=== PATIENT | female | born 1990 ===

== ENCOUNTER 2017-11-27 15:50 | Inpatient (IN) ==
--- NOTE | 2017-11-27 18:19 | PN ---
Progess Note - Interim Date: 11/27/17 Time: 17:47 Narrative: 11/27/17 17:47 27 yo at 37 2/7 wks with janette breech presentation presents for attempt at external cephalic version. U/s shows fetus in janette breech with back to maternal right at a 45' angle. NST reactive. VItal signs stable. R/b/a discussed with patient again and informed consent obtained. 3 attempts at counterclockwise rotation and 1 attempt at clockwise rotation. FHT monitored throughout procedure - mother and baby tolerated well. Patient desires vaginal breech delivery and is a good candidate. Her cervix was 3/50/-2 with buttocks well applied to cervix. Contractions q 2-3 min after stripping membranes. tracing reassuring for over the past 1.5 hours. Will reassess in 1-2 hours for labor. If not in labor, will d/c home to return when contraction increase intensity otherwise admit for labor.
[2017-11-27] MEDS ORDERED: RINGER'S SOLUTION,LACTATED 1,000 ML IV ONE ×2 (19:14→23:08)
[2017-11-27] MEDS ORDERED: DEXTROSE 5%-LACTATED RINGERS 1,000 ML IV PRN (23:08)
[2017-11-27] MEDS ORDERED: OXYTOCIN/DEXTROSE 5%-WATER 30 UNITS/500 ML BAG IV ONE (23:08)
[2017-11-27] MEDS ORDERED: NALOXONE HCL 1 MG/1 ML SYRG IV PRN (23:08)
[2017-11-27] MEDS ORDERED: ONDANSETRON HCL/PF 2 MG/ML VIAL IV PRN (23:08)
[2017-11-27] MEDS ORDERED: fentaNYL CITRATE/PF 50 MCG/ML AMPUL IT SCH (23:15)
[2017-11-27] MEDS ORDERED: BUPIVACAINE HCL/0.9 % NACL/PF 250 ML EP PRN (23:16)
--- NOTE | 2017-11-28 00:09 | ANES ---
Anesthesia Pre Procedure Eval HOME MEDICATIONS Ascorbate Calcium [Vitamin C] 500 mg PO DAILY 11/19/17 [Last Taken 11/26/17] Ferrous Sulfate [Iron] 325 mg PO DAILY 11/19/17 [Last Taken 11/26/17] Vits96/Iron Fum/Folic [ S] 1 tab PO DAILY 11/19/17 [Last Taken 11/26/17] Allergies/Adverse Reactions: Allergies Allergy/AdvReac Type Severity Reaction Status Date / Time No Known Allergies Allergy Verified 11/27/17 16:25 - Planned Procedure Planned Procedure: LABOR Medication List Reviewed:: Yes Allergies Verified: Yes Medical History (Last Reviewed 11/28/17 @ 00:05 by Luke Meredith CRNA) Anemia Onset Date: ~2017 Arrhythmia Bipolar disorder Onset Date: ~2007 Depression Onset Date: ~2007 Migraine Onset Date: Unknown Scoliosis Onset Date: Unknown Chlamydia Onset Date: ~04/04/13 Clavicle fracture Onset Date: Unknown Galactorrhea not associated with childbirth Onset Date: Unknown Ganglion cyst of dorsum of right wrist Onset Date: ~04/2015 Hip pain Onset Date: Unknown Rash Onset Date: ~2003 Wrist pain Onset Date: Unknown Surgical History (Last Reviewed 11/28/17 @ 00:06 by Luke Meredith CRNA) H/O breast augmentation Onset Date: ~08/22/15 H/O arthroscopic knee surgery Onset Date: ~2008 H/O excision of ganglion cyst Onset Date: ~05/09/15 H/O removal of cyst Onset Date: ~12/12/16 History of tonsillectomy Onset Date: ~2008 Hx of tympanostomy tubes Onset Date: ~1994 [place] teeth extracted Onset Date: ~2008 Family History (Last Reviewed 11/28/17 @ 00:06 by Luke Meredith CRNA) Father Cancer Grandfather Heart disease Hypertension Collapsed lung Grandmother Asthma H/O brain surgery - Family Anesthesia History Family History:: no untoward family reactions to anesthesia, no familial bleeding tendencies, no family history of clotting disorders, no family history of premature - Airway/Neck/Teeth Within Normal Limits:: Yes Teeth Condition: Intact Mallampatti Score: 2 Thyromental (T-M) distance: > 6 cm Mandibulo Hyoid distance: > 3 cm - Respiratory Respiratory: chest non-tender, lungs clear Smoking Status: Former smoker Sleep Apnea currently treated: No Sleep Apnea by current assessment: No - Cardiovascular Patient History - Cardiac/Respiratory: Arrhythmias Tolerates Activity: Fair Heart Sounds: S1 & S2, Regular - Anesthesia Assessment and Plan ASA Class: PS, II, E Anesthesia Type Plan: Epidural Planned difficult intubation/equipment available: No - breach presentation, in labor.
--- NOTE | 2017-11-28 00:32 | ANES ---
Anesthesia Procedure Note Procedure Note: ANESTHESIA PROCEDURE NOTE Date of Procedure: 11/27/2017 Time of procedure: 2300. Performed by: NINA Beauchamp CRNA, MSN Director Electronics: Dee Kimball RN. Preprocedure diagnosis: Active labor, labor pain. Post procedure diagnosis: Same. Procedure:Epidural for labor analgesia. L3,4. Indications: Labor pain. Although she is a breech presentation, she was wishing to attempt a vaginal delivery Findings: See below. Details of the procedure: The patient was placed on the side of the bed in sitting positionand prepped with DuraPrep then draped in a sterile fashion. Lidocaine 1% was infiltrated to the skin and subcutaneous tissues at the level of the L3 4 interspace. An 18-gauge Touhy needle was used to approach the epidural space with loss of resistance technique. Once loss of resistance was achieved a 27-gauge spinal needle was passed through the epidural needle and CSF was contacted. After CSF returned, 20 mcg of fentanyl was injected in the spinal needle was removed the epidural catheter was then threaded approximately 4 cm in the epidural needle was removed. The catheter was taped in place and after careful aspiration 3 mL of 1.5% lidocaine with 1-200,000 epinephrine was injected without change in maternal heart rate or sensorium. . EBL: Minimal. Fluids: N/A. Specimen: N/A. Post procedure condition: The patient tolerated the procedure well with [] relief. No complications were noted. Thank you for this consultation. Luke Meredith CRNA, NINA, MSN
--- NOTE | 2017-11-28 00:53 | ANES ---
Post Anesthesia Discharge - Transfer of Care Transfer of Care handoff given to nurse: Yes - Discharge from PACU Discharge from PACU when meets criteria: Yes - Anesthesia Post Op Note Anesthesia Post Op Note: Comfortable following epidural placement
--- NOTE | 2017-11-28 00:55 | ANES ---
Post Anesthesia Assessment - Vital Signs Vitals: BP 136/75, HR 71, RR 18, T 37.3C, SaO2 99 Airway Patency: Normal - Mental Status Level Of Consciousness: Awake, Alert - Pain Level Pain Score: 0 - N/V Assessment Nausea/Vomiting Presence: None Dehydration:: No
[2017-11-28] MEDS ORDERED: ceFAZolin SODIUM/DEXTROSE,ISO 2 GM/50 ML BAG IV ONE (05:43)
[2017-11-28] MEDS ORDERED: OXYTOCIN 20 UNITS in RINGER'S SOLUTION,LACTATED 1,000 ML IV ONE (05:43)
--- NOTE | 2017-11-28 05:50 | PN ---
Progess Note - Interim Date: 11/28/17 Time: 05:45 Narrative: 11/28/17 05:45 Patient comfortable with epidural Vital signs stable. FHT:150 baseline, reassuring Contractions q 2-3 min Cervix: 8/80/-1, no change in 2-1/2 hours Impression: Intrauterine at 37 3/7 weeks in labor, attempting vaginal breech delivery. Patient has fallen off the labor curve and has become too risky to continue with attempt at vaginal breech delivery. Plan: Risks, benefits, and alternatives to section discussed with patient and family area will proceed with primary low transverse section for arrest of descent.
--- NOTE | 2017-11-28 06:09 | HP ---
Chief Complaint - Chief Complaint Date of Service: 11/28/17 Time of Service: 05:51 Chief Complaint: labor History of Present Illness: 27 yo admitted to L&D last night at 37 2/7 wks for labor. Patient underwent attempt at external cephalic version yesterday due to her baby in janette breech presentation. After the failed ECV she began having frequent contractions and cervical change. After being counseled on the r/b/a, she desired to attempt vaginal breech delivery. She was a good candidate and so we continued with labor. She progressed to 8/-1 but failed to make further environmental change analyst 2.5 hours and her cervix began to swell. Because of her falling off the labor curve, we decided it was safer to abandon further attempt at vaginal breech deliver and proceed with section. Medical History (Last Reviewed 11/28/17 @ 00:05 by Luke Meredith CRNA) Anemia Onset Date: ~2017 Arrhythmia Bipolar disorder Onset Date: ~2007 Depression Onset Date: ~2007 Migraine Onset Date: Unknown Scoliosis Onset Date: Unknown Chlamydia Onset Date: ~04/04/13 Clavicle fracture Onset Date: Unknown Galactorrhea not associated with childbirth Onset Date: Unknown Ganglion cyst of dorsum of right wrist Onset Date: ~04/2015 Hip pain Onset Date: Unknown Rash Onset Date: ~2003 Wrist pain Onset Date: Unknown Surgical History: Surgical History (Last Reviewed 11/28/17 @ 00:06 by Luke Meredith CRNA) H/O breast augmentation Onset Date: ~08/22/15 H/O arthroscopic knee surgery Onset Date: ~2008 H/O excision of ganglion cyst Onset Date: ~05/09/15 H/O removal of cyst Onset Date: ~12/12/16 History of tonsillectomy Onset Date: ~2008 Hx of tympanostomy tubes Onset Date: ~1994 [place] teeth extracted Onset Date: ~2008 Family History: Family History (Last Reviewed 11/28/17 @ 00:06 by Luke Meredith CRNA) Father Cancer Grandfather Heart disease Hypertension Collapsed lung Grandmother Asthma H/O brain surgery Social History: Preferred Language Lao Smoking Status Former smoker Abuse History No History of abuse Psych History Hx of Anxiety,Hx of Depression Review Of Systems (GEN) - Review of Systems EENTM: Present: No Symptoms Reported Respiratory: Present: No Symptoms Reported Cardiac: Present: No Symptoms Reported Abdominal: Present: No Symptoms Reported Genitourinary: Present: No Symptoms Reported Musculoskeletal: Present: No Symptoms Reported Neurological: Present: No Symptoms Reported Skin: Present: No Symptoms Reported Endocrine: Present: No Symptoms Reported Immunizations: IMMUNIZATION HX Immunizations Up to Date Yes History of Influenza Vaccine No Hx Pneumococcal Vaccination No Allergies/Adverse Reactions: Allergies Allergy/AdvReac Type Severity Reaction Status Date / Time No Known Allergies Allergy Verified 11/27/17 16:25 Home Medications: HOME MEDICATIONS Ascorbate Calcium [Vitamin C] 500 mg PO DAILY 11/19/17 [Last Taken 11/26/17] Ferrous Sulfate [Iron] 325 mg PO DAILY 11/19/17 [Last Taken 11/26/17] Vits96/Iron Fum/Folic [ S] 1 tab PO DAILY 11/19/17 [Last Taken 11/26/17] Exam - Exam Constitutional: Present: Alert, Oriented x3, Cooperative ENT Exam: Present: hearing grossly normal Back Exam: Present: no CVA tenderness Breasts: Present: Exam deferred Respiratory: Present: lungs clear Cardiovascular/Chest: Present: normal peripheral pulses, regular rate, rhythm, no edema Abdomen: Present: soft, nontender, no rebound tenderness /Rectal: Present: Other - cervix on admission - 4/80/-3. Gravid uterus Extremity: Present: no pedal edema, no calf tenderness Skin Exam: Present: normal color, warm/dry, no cyanosis Lymphatic: Present: no adenopathy Neurologic: Present: alert, normal mood/affect, oriented x 3 Appearance: Present: appropriate appearance, appropriate insight Eye contact: Present: cooperative, good eye contact Thoughts: Present: normal thought pattern Diagnostic Studies: T 37.3 C, P 71, BP 136/75, R 18, 99% O2 NST reactive. Assessment/Plan - Assessment/Plan (1) Maternal care for breech presentation, other fetus Problem: Acute (2) Labor presentation, breech Problem: Acute (3) Labor with prolonged first stage Assessment: Admitted for management of labor, but will proceed with primary low transverse section due to protracted first stage of labor. Problem: Acute
--- NOTE | 2017-11-28 06:13 | ANES ---
Anesthesia Pre Procedure Eval HOME MEDICATIONS Ascorbate Calcium [Vitamin C] 500 mg PO DAILY 11/19/17 [Last Taken 11/26/17] Ferrous Sulfate [Iron] 325 mg PO DAILY 11/19/17 [Last Taken 11/26/17] Vits96/Iron Fum/Folic [ S] 1 tab PO DAILY 11/19/17 [Last Taken 11/26/17] Allergies/Adverse Reactions: Allergies Allergy/AdvReac Type Severity Reaction Status Date / Time No Known Allergies Allergy Verified 11/27/17 16:25 - Planned Procedure Planned Procedure: LABOR Medication List Reviewed:: Yes Allergies Verified: Yes Medical History (Last Reviewed 11/28/17 @ 06:10 by Luke Meredith CRNA) Anemia Onset Date: ~2017 Arrhythmia Bipolar disorder Onset Date: ~2007 Depression Onset Date: ~2007 Migraine Onset Date: Unknown Scoliosis Onset Date: Unknown Chlamydia Onset Date: ~04/04/13 Clavicle fracture Onset Date: Unknown Galactorrhea not associated with childbirth Onset Date: Unknown Ganglion cyst of dorsum of right wrist Onset Date: ~04/2015 Hip pain Onset Date: Unknown Rash Onset Date: ~2003 Wrist pain Onset Date: Unknown Surgical History (Last Reviewed 11/28/17 @ 06:10 by Luke Meredith CRNA) H/O breast augmentation Onset Date: ~08/22/15 H/O arthroscopic knee surgery Onset Date: ~2008 H/O excision of ganglion cyst Onset Date: ~05/09/15 H/O removal of cyst Onset Date: ~12/12/16 History of tonsillectomy Onset Date: ~2008 Hx of tympanostomy tubes Onset Date: ~1994 [place] teeth extracted Onset Date: ~2008 Family History (Last Reviewed 11/28/17 @ 06:10 by Luke Meredith CRNA) Father Cancer Grandfather Heart disease Hypertension Collapsed lung Grandmother Asthma H/O brain surgery - Family Anesthesia History Family History:: no untoward family reactions to anesthesia, no familial bleeding tendencies, no family history of clotting disorders, no family history of premature - Airway/Neck/Teeth Within Normal Limits:: Yes Teeth Condition: Intact Mallampatti Score: 2 Thyromental (T-M) distance: > 6 cm Mandibulo Hyoid distance: > 3 cm - Respiratory Respiratory: chest non-tender, lungs clear Smoking Status: Former smoker Sleep Apnea currently treated: No Sleep Apnea by current assessment: No - Cardiovascular Patient History - Cardiac/Respiratory: Arrhythmias - Never detected arrythmia by cardiology, repeat visit post Heart Sounds: S1 & S2, Regular, Murmur - Anesthesia Assessment and Plan ASA Class: PS, II, E Anesthesia Type Plan: Epidural - will attempt epidural, current one sidedness may require SAB
[2017-11-28] MEDS ORDERED: LIDOCAINE HCL 50 ML VIAL IJ ONE (07:26)
--- NOTE | 2017-11-28 08:08 | ANES ---
Post Anesthesia Discharge - Transfer of Care Transfer of Care handoff given to nurse: Yes - Discharge from PACU Discharge from PACU when meets criteria: Yes - Anesthesia Post Op Note Anesthesia Post Op Note: Alert and comfortable in PACU.
--- NOTE | 2017-11-28 08:30 | OR ---
Operative Report - Dictated Report Narrative: Indication: 27-year-old 3 para 2 admitted at 37 2/7 weeks in labor with breech presentation. Since patient desired a vaginal breech delivery and was a good candidate, she progressed in her labor to 8 cm until developing cervical edema from a protracted first stage of labor. For this reason further attempt at vaginal delivery was abandoned and we proceeded with a primary transverse section. Status: Planned Pre Operative Diagnosis: 37-3/7 week intrauterine . Russel breech presentation. Protracted first stage of labor. Post Operative Diagnosis: Same. Procedure Preformed: Primary Low Transverse Section Surgeon: Faye Canela DO Habilitation Assistant: OR Staff Anesthesia: Epidural with Duramorph and local lidocaine anesthesia Estimated Blood Loss: 600 mL Urine Output: 100 mL of clear urine Fluids Given: 1300 mL of crystalloid Drains: Cardoso to gravity Complications: Inadequate block on the left side despite symptoms of a high epidural, Specimens: Placenta to freezer Findings: Female born at 0709 on 11/28/2016 in russel breech presentation with Apgars 8 and 9, weighing 3100 g. Normal uterus, tubes, ovaries. Technique: The patient was brought to the OR from labor and delivery with epidural, Cardoso catheter, and SCDs in place. She was placed in dorsal supine position with a left lateral tilt and given 2 grams of Ancef intravenously. Her labor epidural was dosed for section and shortly thereafter developed hypotension, nausea, and lightheadedness. Despite this the patient's left side was slow to obtain adequate anesthesia. 1% lidocaine was injected in the subcutaneous and fascia on the left side. The abdominal cavity was entered via a modified Arun-Delaney incision. Two rolled laps were placed in the pericolic gutters on either side of the uterus. A transverse incision was made in the lower uterine segment and extended laterally and upwardly with digital traction. Clear fluid was noted upon amniotomy. The infant was delivered easily in russel breech presentation. The was warmed and dried for approximately 1 minute before the cord was clamped and cut and she was handed off to awaiting buffer inflated pad. The placenta was allowed to deliver spontaneously. The uterus was cleared of clot and debris. Uterine incision was closed with 0 Vicryl in a running stitch. A second imbricating layer was placed. Excellent hemostasis was noted. Rolled laps were removed from the abdominal cavitiy. The peritoneum was closed with a running 3-0 Monocryl. The same suture was used to approximate the rectus and pyramidalis muscles. The fascia was closed with a running 0 Vicryl. The subcutaneous layer was closed with a running 3-0 Monocryl. The same suture was used to approximate the subdermal layer. The skin was closed with a running 4-0 Monocryl and Dermabond. Sponge, lap, needle, and instrument count were correct x 2. Disposition: The patient was transferred to post anesthesia care unit in good condition History for MU Definition: * The number of deliveries resulting in a live the patient experienced prior to current hospitalization * The previous delivery of live twins or any live multiple gestation is considered one live event. *If primagravida or nulliparous is documented select zero for the number of previous live births. Live Events: 2
[2017-11-28] MEDS ORDERED: NALOXONE HCL 1 MG/1 ML SYRG IV PRN (08:35)
[2017-11-28] MEDS ORDERED: oxyCODONE HCL/ACETAMINOPHEN 1 TAB TABLET PO PRN ×2 (08:35)
[2017-11-28] MEDS ORDERED: BISACODYL 10 MG SUPP.RECT RC PRN (08:35)
[2017-11-28] MEDS ORDERED: SENNOSIDES 8.6 MG TABLET PO PRN (08:35)
[2017-11-28] MEDS ORDERED: SIMETHICONE 80 MG TAB.CHEW PO PRN (08:35)
[2017-11-28] MEDS ORDERED: ASCORBATE CALCIUM 500 MG PO SCH (09:00)
[2017-11-28] MEDS: ONDANSETRON HCL/PF 2 MG/ML VIAL IV PRN ×2 (09:02→12:49)
--- NOTE | 2017-11-28 09:47 | ANES ---
Post Anesthesia Assessment - Vital Signs Vitals: Last Vital Signs Temp 37.3 C 11/28/17 08:35 Pulse 98 11/28/17 08:35 Resp 20 11/28/17 08:35 BP 135/42 11/28/17 08:35 Pulse Ox 95 11/28/17 08:35 Airway Patency: Normal - Mental Status Level Of Consciousness: Awake, Alert - Pain Level Pain Score: 0 - N/V Assessment Nausea/Vomiting Presence: Nauseated - Nausea possible secondary to Duramorph, instructed to use narcan if nessesary Dehydration:: No
[2017-11-28] MEDS: PRENATAL VITS96/IRON FUM/FOLIC 1 TAB TABLET PO SCH (12:43)
[2017-11-28] MEDS: DOCUSATE SODIUM 100 MG CAPSULE PO SCH (12:43)
[2017-11-28] MEDS ORDERED: DEXTROSE 5%-LACTATED RINGERS 1,000 ML IV PRN (15:50)
[2017-11-28] MEDS ORDERED: PROMETHAZINE HCL 25 MG SUPP.RECT RC ONE (15:53)
[2017-11-28] MEDS ORDERED: KETOROLAC TROMETHAMINE 30 MG/ML VIAL IV ONE (15:54)
[2017-11-28] MEDS: ENOXAPARIN SODIUM 40 MG/0.4 ML SYRG SC SCH (16:06)
[2017-11-29] MEDS: DOCUSATE SODIUM 100 MG CAPSULE PO SCH ×3 (04:28→21:19)
[2017-11-29] MEDS: FERROUS SULFATE 325 MG TABLET PO SCH ×2 (04:28→09:19)
[2017-11-29] MEDS: IBUPROFEN 800 MG TABLET PO PRN ×2 (04:28→14:43)
[2017-11-29] MEDS: PRENATAL VITS96/IRON FUM/FOLIC 1 TAB TABLET PO SCH (09:19)
--- NOTE | 2017-11-29 09:35 | PN ---
Subjective - Date and Time Seen Date: 11/29/17 Time: 09:34 Objective - Vitals Vitals: Last Vital Signs Temp 36.4 C 11/29/17 08:30 Pulse 58 L 11/29/17 08:30 Resp 16 11/29/17 08:30 BP 124/60 11/29/17 08:30 Pulse Ox 98 11/29/17 08:30 Patient denies complaints. Tolerating regular diet. Ambulating without difficulty. Pain well controlled. Lochia wnl. Abdomen - soft, appropriately tender Incision - clean, dry, intact Uterus - firm, at umbilicus -1 No calf tenderness Impression: Post op day #1 s/p primary section. Plan: Continue routine post-operative/ care Cauti Physician Documentation - Urinary Catheter Management Urethral (Cardoso) Date of Insertion: 11/28/17 Time of Insertion: 00:30 Date of Removal: 11/28/17 Time of Removal: 19:05 Assessment/Plan - Problems/Diagnosis (1) Maternal care for breech presentation, other fetus Problem: Acute (2) Labor presentation, breech Problem: Acute (3) Labor with prolonged first stage Problem: Acute
--- NOTE | 2017-11-29 11:48 | ANES ---
Post Anesthesia Assessment - Vital Signs Vitals: Last Vital Signs Temp 36.4 C 11/29/17 08:30 Pulse 58 L 11/29/17 08:30 Resp 16 11/29/17 08:30 BP 124/60 11/29/17 08:30 Pulse Ox 98 11/29/17 08:30 Airway Patency: Normal - Mental Status Level Of Consciousness: Awake - Pain Level Pain Score: 0 - N/V Assessment Nausea/Vomiting Presence: None Dehydration:: No - Additional Notes Comments:: Quite comfortable today.
[2017-11-29] MEDS: ENOXAPARIN SODIUM 40 MG/0.4 ML SYRG SC SCH (16:13)
[2017-11-30] MEDS: IBUPROFEN 800 MG TABLET PO PRN (04:10)
[2017-11-30 08:24] VITALS: BP 120/57
--- NOTE | 2017-11-30 09:11 | PN ---
Subjective - Date and Time Seen Date: 11/30/17 Time: 09:10 Objective - Vitals Vitals: Last Vital Signs Temp 36.5 C 11/30/17 08:17 Pulse 75 11/30/17 08:17 Resp 18 11/30/17 08:17 BP 120/57 11/30/17 08:17 Pulse Ox 99 11/30/17 08:17 Patient denies complaints. Ambulating well. Tolerating regular diet. Pain well controlled. Lochia wnl. Abdomen - soft, appropriately tender Incision - clean, dry, intact Uterus - firm, at umbilicus -2 No calf tenderness Impression: Post op day #2 s/p primary section. Desires early discharge Plan: Continue routine post-operative/ care. Routine discharge instructions given Cauti Physician Documentation - Urinary Catheter Management Urethral (Cardoso) Date of Insertion: 11/28/17 Time of Insertion: 00:30 Date of Removal: 11/28/17 Time of Removal: 19:05 Assessment/Plan - Problems/Diagnosis (1) Maternal care for breech presentation, other fetus Problem: Acute (2) Labor presentation, breech Problem: Acute (3) Labor with prolonged first stage Problem: Acute
== END 2017-11-30 11:45 | disposition home or self-care (01) | DRG 766 ==
LOC: OBCLINIC 15:50 → OB 23:02
PROVIDERS: ADMIT Obstetrics & Gynecology; ATTEND Obstetrics & Gynecology
CPT/HCPCS: 59025; J2405